=== PATIENT | female | born 1985 | race African-American/Black ===

== ENCOUNTER 2017-09-13 15:21 | Emergency (ER) | payer OTHER ==
[2017-09-13 15:46] VITALS: BP 114/74
[2017-09-13] MEDS ORDERED: IBUPROFEN 600 MG TABLET PO ONE (17:54)
--- NOTE | 2017-09-13 17:56 | ER Document Report ---
ED ENT - General Chief Complaint: Sore Throat Stated Complaint: SORE THROAT Time Seen by Provider: 09/13/17 17:39 Mode of Arrival: Ambulatory Information source: Patient TRAVEL OUTSIDE OF THE [place] IN LAST 30 DAYS: No - HPI Patient complains to provider of: Throat problem Notes: The patient is here with complaints of sore throat. She states that this is been present for the last few days. She tells me that she gets sore throat very frequently throughout the year. She has never seen an ENT for this. She denies fever. She denies cough currently. She denies nausea, vomiting, diarrhea. No difficulty breathing or swallowing. Pain is worse with swallowing. No headache, blurred vision, numbness, tingling, weakness. No abdominal pain. No other complaints at this time. - Related Data Allergies/Adverse Reactions: acetaminophen [From NyQuil] Adverse Reaction (Verified 09/13/17 15:23) dextromethorphan [From NyQuil] Adverse Reaction (Verified 09/13/17 15:23) doxylamine [From NyQuil] Adverse Reaction (Verified 09/13/17 15:23) pseudoephedrine [From NyQuil] Adverse Reaction (Verified 09/13/17 15:23) Past Medical History - Social History Smoking Status: Unknown if Ever Smoked Family History: Reviewed & Not Pertinent Patient has suicidal ideation: No Patient has homicidal ideation: No Renal/ Medical History: Denies: Hx Peritoneal Dialysis - Immunizations Immunizations up to date: Yes Hx Diphtheria, Pertussis, Tetanus Vaccination: Yes Review of Systems - Review of Systems -: Yes All other systems reviewed and negative Physical Exam - Vital signs Vitals: Temp Pulse Resp BP Pulse Ox 98.8 F 86 18 114/74 100 09/13/17 15:44 09/13/17 15:44 09/13/17 15:44 09/13/17 15:44 09/13/17 15:44 - Notes Notes: GENERAL: alert, cooperative, nontoxic, no distress. HEAD: normocephalic, atraumatic EYES: conjunctiva pink without discharge, no external redness or swelling. EARS: no external swelling, no external redness, no mastoid redness, swelling, tenderness. Ear canals are clear without swelling or drainage. TMs pearly verma , no redness, no bulging, normal landmarks, no perforation. NOSE: atraumatic, no external swelling. clear rhinorrhea noted. MOUTH/THROAT: mucous membranes moist and pink, posterior pharynx with erythema and mild swelling to the bilateral tonsils. Uvula is midline. No peritonsillar abscess. Voice is normal. No trismus or drooling. NECK: soft, supple, full range of motion, no meningismus. No anterior cervical lymphadenopathy. CHEST: no distress, lungs clear and equal throughout. No wheezing, rales, rhonchi. CARDIAC: regular rate and rhythm, no murmur, normal capillary refill, normal pulses. No peripheral edema noted. BACK: full range of motion, no CVA tenderness. EXTREMITIES: full range of motion of all extremities. No redness, no swelling. NEURO: alert and oriented A&O3, no focal deficits, full range of motion of all extremities. PYSCH: appropriate mood, affect. Patient is cooperative. SKIN: pink, warm, dry, no rash. Course - Re-evaluation Re-evalutation: 09/13/17 19:13 The patient is nontoxic appearing with stable vitals. The patient has had a sore throat for last several days. Throat exam shows red swollen tonsils with no exudate. Uvula is midline with no signs of peritonsillar abscess. She has no trismus or drooling. She is in no distress. Patient will be given a dose of Decadron as well as Bicillin in the emergency department and will be discharged home with instructions to take Tylenol and Motrin as needed for pain. Drink plenty of fluids. Change her toothbrush in 48 hours. Follow-up if not better in 1 week, sooner for worsening pain, high fever, difficulty breathing or swallowing, or for any further concerns. The patient's emergency department workup and current diagnosis were explained to the patient and or family. Follow-up instructions were provided. Medications if prescribed were discussed. Instructions for when to return to the emergency department including specific worrisome symptoms were discussed with the patient and/or family. - Vital Signs Vital signs: Temp Pulse Resp BP Pulse Ox 98.8 F 86 18 114/74 100 09/13/17 15:44 09/13/17 15:44 09/13/17 15:44 09/13/17 15:44 09/13/17 15:44 Discharge - Discharge Clinical Impression: Strep pharyngitis Condition: Stable Disposition: HOME, SELF-CARE Instructions: Strep Throat ([facility]), Penicillin V K ([facility]) Additional Instructions: Tylenol or Motrin as needed for pain. Drink plenty of fluids. Change her toothbrush in 48 hours. Follow-up if not better in the next 3-5 days, sooner for increasing pain, high fever, persistent vomiting, difficulty breathing or swallowing, or for any further concerns. Forms: Smoking Cessation Education, Return to Work Referrals: YOBANI OLIVA MD [ACTIVE STAFF] - Follow up as needed RITA MAZARIEGOS MD [ONION FARMER] - Follow up as needed CAROL MEDEROS MD [ONION FARMER] - Follow up as needed YARELIS SANTOS MD [NO LOCAL MD] - Follow up as needed
[2017-09-13] MEDS ORDERED: DEXAMETHASONE SOD PHOS INJ 10 MG/1 ML VIAL IM ONE (19:13)
[2017-09-13] MEDS ORDERED: PENICILLIN G BENZATHINE 1.2 MILLION UNIT/2 ML DISP.SYRIN IM ONE (19:13)
== END 2017-09-13 19:54 | disposition home or self-care (01) ==
LOC: ER 15:21
DX: J02.0 Streptococcal pharyngitis (principal)
CPT/HCPCS: 99283; 96372; 87880; J0561; J1100

== ENCOUNTER 2019-03-11 12:35 | Outpatient (CLI) | payer MEDICAID, OTHER ==
[2019-03-11 13:29] LABS: BACTERIA (WET MOUNT) 4+ BACTERIA SEEN; EPITHELIALS (WET MOUNT) 4+ EPITHELIALS SEEN; RBCS (WET MOUNT) RARE RBCS SEEN; T.VAGINALIS (WET MOUNT) NO TRICHOMONAS SEEN; WBCS (WET MOUNT) 3+ WBCS SEEN; YEAST (WET MOUNT) NO YEAST SEEN
[2019-03-11 13:38] LABS: APPEARANCE,URINE SLIGHTLY-CLOUDY; BILIRUBIN,URINE NEGATIVE (NEGATIVE); COLOR,URINE YELLOW; GLUCOSE, URINE 50 mg/dL (NEGATIVE); KETONES,URINE TRACE mg/dL (NEGATIVE); LEUKOCYTE ESTERASE,URINE MODERATE (NEGATIVE); NITRITE,URINE NEGATIVE (NEGATIVE); PROTEIN,URINE 30 mg/dL (NEGATIVE); URINE SPECIFIC GRAVITY 1.026
[2019-03-11 13:42] LABS: URINE AMPHETAMINES SCREEN NEGATIVE; URINE BARBITURATES SCREEN NEGATIVE; URINE BENZODIAZEPINES SCREEN NEGATIVE; URINE COCAINE SCREEN NEGATIVE; URINE MARIJUANA (THC) SCREEN NEGATIVE; URINE METHADONE SCREEN NEGATIVE; URINE PHENCYCLIDINE SCREEN NEGATIVE
[2019-03-11 14:51] LABS: CHLAM PCR NOT DETECTED (NOT DETECT)
[2019-03-11] MEDS ORDERED: METRONIDAZOLE 500 MG TABLET ONE (15:06)
[2019-03-11] MEDS ORDERED: METRONIDAZOLE 500 MG TABLET PO ONE (15:07)
--- NOTE | 2019-03-11 19:19 | RADIOLOGY REPORT (SQ) ---
EXAM DESCRIPTION: U/S OB LIMITED COMPLETED DATE/TIME: 03/11/2019 4:39 pm REASON FOR STUDY: CL for ctx . The patient is 22 weeks 3 days . COMPARISON: None. TECHNIQUE: Limited transabdominal grayscale ultrasound for evaluation of specific requested obstetri sushil parameters. LIMITATIONS: None. FINDINGS: CERVICAL LENGTH: 3.6 cm. Closed. LVP: 5.5 cm. PRESENTATION: Breech. PLACENTA: Anterior HEART RATE: 140 beats per minute. ANATOMY: Not assessed IMPRESSION: LIMITED OBSTETRICAL ULTRASOUND WITH MEASURED PARAMETERS DELINEATED ABOVE. Trimester of : Second trimester - 13 weeks 1 day to 27 weeks 6 days. TECHNICAL DOCUMENTATION: JOB ID: [id number] 2010 [employer]- All Rights Reserved Reading location - IP/workstation name: [email or web address]
== END 2019-03-11 16:51 | disposition home or self-care (01) ==
LOC: LC 12:35
PROVIDERS: ATTEND Obstetrics & Gynecology
DX: O23.592 Infection of other part of genital tract in pregnancy, second trimester (principal); B96.89 Other specified bacterial agents as the cause of diseases classified elsewhere; O99.282 Endocrine, nutritional and metabolic diseases complicating pregnancy, second trimester; E86.0 Dehydration; O47.02 False labor before 37 completed weeks of gestation, second trimester; Z3A.22 22 weeks gestation of pregnancy
CPT/HCPCS: 59899; 87086; 87210; 87088; 81001; 80307; 87491; 87591; 76815; J3490

== ENCOUNTER 2019-04-21 22:36 | Emergency (ER) | payer MEDICAID ==
[2019-04-21 22:47] VITALS: BP 142/70
== END 2019-04-21 22:56 | disposition left against medical advice (07) ==
LOC: ER 22:36
DX: Z53.21 Procedure and treatment not carried out due to patient leaving prior to being seen by health care provider (principal)

== ENCOUNTER 2019-06-02 09:03 | Outpatient (CLI) | payer MEDICAID ==
--- NOTE | 2019-06-02 10:03 | Non Stress Test Report ---
Non Stress Test Datetime Report Generated by CPN: 06/02/2019 10:03 DEMOGRAPHIC EGA NST: 34.2 INDICATION Indication for Study (NST) Other: gestational diabetes diet controlled URINE RESULTS Urine Glucose - NST: Negative MONITORING Monitor Explained: Monitor Explained; Test Explained; Patient Verbalized Understanding Time on Monitor: 06/02/2019 09:15 Time off Monitor: 06/02/2019 10:00 NST Duration: 45 NST INTERVENTIONS NST Interventions: PO Hydration; Reposition Patient BABY A: [id number] BABY A Movement : Present Contraction Frequency : occ amina vidal FHR Baseline : 140 Accelerations : 15X15 Decelerations : None Variability : Moderate 6-25bpm NST Review: Meets Criteria for Reactive NST NST Review and Verified By : anamika NST Review and Verified By : MAXIMUS Galindo NST Results: Reactive NST REPORT Report Trigger: Send Report
== END 2019-06-02 10:10 | disposition home or self-care (01) ==
LOC: LC 09:03
PROVIDERS: ATTEND Obstetrics & Gynecology
PROC: 4A1HXCZ Monitoring of Products of Conception, Cardiac Rate, External Approach (ICD-10-PCS; principal; 2019-06-02)
DX: O24.419 Gestational diabetes mellitus in pregnancy, unspecified control (principal); Z3A.34 34 weeks gestation of pregnancy
CPT/HCPCS: 59025

== ENCOUNTER 2019-06-09 16:12 | Outpatient (CLI) | payer MEDICAID ==
[2019-06-09 16:53] LABS: APPEARANCE,URINE SLIGHTLY-CLOUDY; BILIRUBIN,URINE NEGATIVE (NEGATIVE); COLOR,URINE YELLOW; GLUCOSE, URINE NEGATIVE (NEGATIVE); KETONES,URINE 80 mg/dL (NEGATIVE); LEUKOCYTE ESTERASE,URINE MODERATE (NEGATIVE); NITRITE,URINE NEGATIVE (NEGATIVE); PROTEIN,URINE 100 mg/dL (NEGATIVE); URINE SPECIFIC GRAVITY 1.026
[2019-06-09] MEDS ORDERED: RINGERS SOLUTION,LACTATED 1,000 ML IV PRN (17:03)
[2019-06-09] MEDS ORDERED: PROMETHAZINE HCL INJ 25 MG/1 ML VIAL IV ONE (17:05)
[2019-06-09] MEDS ORDERED: PROMETHAZINE HCL INJ 25 MG/1 ML VIAL ONE (17:08)
[2019-06-09 17:09] LABS: URINE AMPHETAMINES SCREEN NEGATIVE; URINE BARBITURATES SCREEN NEGATIVE; URINE BENZODIAZEPINES SCREEN NEGATIVE; URINE COCAINE SCREEN NEGATIVE; URINE MARIJUANA (THC) SCREEN NEGATIVE; URINE METHADONE SCREEN NEGATIVE; URINE PHENCYCLIDINE SCREEN NEGATIVE
[2019-06-09 17:52] LABS: ABSOLUTE BASOPHILS # (AUTO) 0.1 10^3/uL (0.0-0.2); ABSOLUTE EOSINOPHILS # (AUTO) 0.1 10^3/uL (0.0-0.6); ABSOLUTE LYMPHOCYTES (AUTO) 0.8 10^3/uL (0.5-4.7); ABSOLUTE MONOCYTES (AUTO) 0.7 10^3/uL (0.1-1.4); ABSOLUTE NEUT (AUTO) 9.1 10^3/uL (1.7-8.2); BASOPHILS % (AUTO) 0.6 % (0-2); EOSINOPHILS % (AUTO) 0.6 % (0-6); HEMOGLOBIN 11.6 g/dL (12.0-15.5); LYMPHOCYTES % (AUTO) 7.1 % (13-45); MEAN CORPUSCULAR HEMOGLOBIN 29.6 pg (27.0-33.4); MEAN CORPUSCULAR HGB CONC 34.3 g/dL (32.0-36.0); MEAN CORPUSCULAR VOLUME 86 fl (80-97); MONOCYTES % (AUTO) 6.9 % (3-13); PLATELET COUNT 253 10^3/uL (150-450); RED BLOOD COUNT 3.94 10^6/uL (3.72-5.28); RED CELL DISTRIBUTION WIDTH 14.4 % (11.5-14.0); SEGMENTED NEUTROPHILS % (AUTO) 84.8 % (42-78); TOTAL CELLS COUNTED % (AUTO) 100 %; WHITE BLOOD COUNT 10.8 10^3/uL (4.0-10.5)
--- NOTE | 2019-06-09 18:51 | Non Stress Test Report ---
Non Stress Test Datetime Report Generated by CPN: 06/09/2019 18:50 DEMOGRAPHIC EGA NST: 35.2 INDICATION Indication for Study (NST) Other: false labor MONITORING Monitor Explained: Monitor Explained; Test Explained; Patient Verbalized Understanding Time on Monitor: 06/09/2019 16:29 Time off Monitor: 06/09/2019 18:47 NST Duration: 138 NST INTERVENTIONS NST Interventions: IV Fluids; Reposition Patient BABY A: [id number] BABY A Movement : Present Contraction Frequency : irregular FHR Baseline : 145 Accelerations : 15X15 Decelerations : None Variability : Moderate 6-25bpm NST Review: Meets Criteria for Reactive NST NST Results: Reactive NST REPORT Report Trigger: Send Report
== END 2019-06-09 18:47 | disposition home or self-care (01) ==
LOC: LC 16:12
PROVIDERS: ATTEND Obstetrics & Gynecology Gynecology
PROC: 4A1HXCZ Monitoring of Products of Conception, Cardiac Rate, External Approach (ICD-10-PCS; principal; 2019-06-09)
DX: O47.03 False labor before 37 completed weeks of gestation, third trimester (principal); Z3A.35 35 weeks gestation of pregnancy
CPT/HCPCS: 59025; 36415; 85025; 81001; 80307; J2550

== ENCOUNTER 2019-06-28 03:15 | Inpatient (IN) | payer MEDICAID ==
[2019-06-28 03:49] LABS: APPEARANCE,URINE SLIGHTLY-CLOUDY; BILIRUBIN,URINE NEGATIVE (NEGATIVE); COLOR,URINE STRAW; GLUCOSE, URINE NEGATIVE (NEGATIVE); KETONES,URINE NEGATIVE (NEGATIVE); LEUKOCYTE ESTERASE,URINE LARGE (NEGATIVE); NITRITE,URINE NEGATIVE (NEGATIVE); PROTEIN,URINE 30 mg/dL (NEGATIVE); UROBILINOGEN,URINE NEGATIVE mg/dL (<2.0)
[2019-06-28 04:06] LABS: URINE AMPHETAMINES SCREEN NEGATIVE; URINE BARBITURATES SCREEN NEGATIVE; URINE BENZODIAZEPINES SCREEN NEGATIVE; URINE COCAINE SCREEN NEGATIVE; URINE MARIJUANA (THC) SCREEN NEGATIVE; URINE METHADONE SCREEN NEGATIVE; URINE PHENCYCLIDINE SCREEN NEGATIVE
[2019-06-28] MEDS ORDERED: OXYTOCIN 10 UNIT/ML VIAL ONE (04:24)
[2019-06-28] MEDS ORDERED: LIDOCAINE 1% INJ-PF (10 MG/ML) 30 ML SDV ONE (04:24)
[2019-06-28] MEDS ORDERED: MISOPROSTOL 0.2 MG TABLET ONE (04:24)
[2019-06-28] MEDS ORDERED: OXYTOCIN/NORMAL SALINE 20 UNIT/1,000 ML RTUINJ ONE (04:24)
--- NOTE | 2019-06-28 04:55 | Admission Physical ---
Datetime Report Generated by CPN: 06/28/2019 04:55 CURRENT ADMISSION Chief Complaint: Uterine Contractions Indication for Induction: Not Applicable Admit Impression : Term, Intrauterine ; Active Labor Admit Plan: Admit to Unit; Initiate Labor Protocol ALLERGIES Medication Allergies: No Medication Allergies: No Known Allergies (06/28/2019) Latex: No Latex Allergies OBSTETRICAL HISTORY EDC: 07/12/2019 00:00 : 4 Para: 2 Gestational Diabetes: Yes Rh Sensitization: No Incompetent Cervix: No SHIELA: No Infertility: No ART Treatment: No Uterine Anomaly: No IUGR: No Hx Previous C/S: No Macrosomia: No Hx Loss/Stillborn: No PIH: No Hx : No Placenta Previa/Abruption: No Depression/PP Depression: No PTL/PROM: No Post Hemorrhage: No SEE RECORDS Alcohol: No Marijuana : No Cocaine: No Other Illicit Drugs: No Cigarettes: Never Smoker. [id number] MEDICAL HISTORY Diabetes: Yes Diabetes Type: Gestational Diabetes Blood Transfusion: No Pulmonary Disease (Asthma, TB): No Breast Disease: No Hypertension: No Saw Maker Surgery: No Heart Disease: No Hosp/Surgery: No Autoimmune Disorder: No Anesthetic Complications: No Kidney Disease: No Abnormal Pap Smear: No Neuro/Epilepsy: No Psychiatric Disorders: No Other Medical Diseases: No Hepatitis/Liver Disease: No Significant Family History: No Varicosities/Phlebitis: No Trauma/Violence : No Thyroid Dysfunction: No INFECTIOUS HISTORY Gonorrhea: No Genital Herpes: No Chlamydia: No Tuberculosis: No Syphilis: No Hepatitis: No HIV/AIDS Exposure: No Rash or Viral Illness: No HPV: No PHYSICAL EXAM General: Normal HEENT: Normal Neurologic: Normal Thyroid: Normal Heart: Normal Lungs: Normal Breast: Deferred Back: Normal Abdomen: Normal Genitourinary Exam: Normal Extremities: Normal DTRs: Normal Pelvic Type: Adequate Vital Signs: Reviewed FETUS A EGA: 38.0 Monitoring: External US Presentation: Vertex PLANS FOR LABOR AND DELIVERY Labor and Delivery: None Pain Management: Natural Feeding Preference: Breast Benefit of Breast Feed Discussed: Yes Circumcision: Yes INFORMED CONSENT Signature: with User ID: [email or web address]
[2019-06-28] MEDS ORDERED: BENZOCAINE/MENTHOL AEROSOL SPRAY 56 ML TOP PRN (04:59)
[2019-06-28] MEDS ORDERED: PROMETHAZINE HCL 25 MG SUPP.RECT PR PRN (04:59)
[2019-06-28] MEDS ORDERED: PROMETHAZINE HCL 25 MG TABLET PO PRN (04:59)
[2019-06-28] MEDS ORDERED: DIPHENHYDRAMINE HCL 25 MG CAPSULE PO PRN (04:59)
[2019-06-28] MEDS ORDERED: MAGNESIUM HYDROXIDE SUSP 30 ML UDCUP PO PRN (04:59)
[2019-06-28] MEDS ORDERED: MEASLES,MUMPS&RUBELLA VACC/PF 0.5 ML VIAL SUBCUT PRN (04:59)
[2019-06-28] MEDS ORDERED: PROMETHAZINE HCL INJ 25 MG/1 ML VIAL IV PRN (04:59)
[2019-06-28] MEDS ORDERED: ZOLPIDEM TARTRATE 5 MG TABLET PO PRN (04:59)
[2019-06-28] MEDS ORDERED: DIBUCAINE 1% OINTMENT 28 GM TP PRN (04:59)
[2019-06-28] MEDS ORDERED: DIPH/PERTUSS(ACELL)/TETANUS VAC/PF 0.5 ML SYR (>=10YO) IM PRN (04:59)
[2019-06-28] MEDS ORDERED: ACETAMINOPHEN 650 MG SUPP.RECT PR PRN (04:59)
[2019-06-28] MEDS ORDERED: GLYCERIN/WITCH HAZEL LEAF 1 EACH MED..WIPE TP PRN (04:59)
[2019-06-28] MEDS ORDERED: NA PHOS,M-B/NA PHOS,DI-BA (ADULT) 133 ML ENEMA PR PRN (04:59)
[2019-06-28] MEDS ORDERED: OXYTOCIN/NORMAL SALINE 20 UNIT/1,000 ML RTUINJ IV PRN (04:59)
[2019-06-28] MEDS ORDERED: PSEUDOEPHEDRINE HCL 30 MG TABLET PO PRN (04:59)
[2019-06-28] MEDS ORDERED: ACETAMINOPHEN WITH CODEINE #3 TABLET PO PRN (04:59)
--- NOTE | 2019-06-28 05:55 | Delivery Summary ---
Del Sum A-C Datetime Report Generated by CPN: 06/28/2019 05:55 DELIVERY PERSONNEL DELIVERY PERSONNEL: [id number] Delivery Doctor:: Betsy Chen MD Labor and Delivery Nurse:: Leyla Iqbal RN Labor and Delivery Nurse:: Gena Mcmahon RN Nursery Nurse:: Katya Marshall RN Special Needs Nanny/TYPE PROOF REPRODUCER: Edith Ross, ST MATERNAL INFORMATION Delivery Anesthesia: None Medications After Delivery: Pitocin Drip 20 Units/1000ml NSS Meds After Delivery Comment: 20 units pitocin after placenta delivery Estimated Blood Loss (ml): 75 Delivery QBL: 75 Maternal Complications: Precipitous Labor (<3hrs) LABOR SUMMARY EDC: 07/12/2019 00:00 No. Babies in Womb: 1 Attempted: Yes Labor Anesthesia: None LABOR INFORMATION Reason for Induction: Not Applicable Onset of Labor: 06/28/2019 03:19 Complete Dilatation: 06/28/2019 04:17 Oxytocin: N/A Group B Beta Strep: positive Antibiotics # of Doses: 0 Steroids Given: None Reason Steroids Not Administered: Not Applicable MEMBRANES Membranes Rupture Method: Spontaneous Rupture of Membranes: 06/28/2019 04:33 Length of Rupture (hr): 0.05 Amniotic Fluid Color: Clear Amniotic Fluid Amount: Small STAGES OF LABOR Stage 1 hr: 0 Stage 1 min: 58 Stage 2 hr: 0 Stage 2 min: 19 Stage 3 hr: 0 Stage 3 min: 12 Total Time in Labor hr: 1 Total Time in Labor min: 29 VAGINAL DELIVERY Episiotomy: None Laceration #1: None Laceration Extension #1: N/A Laceration #2: None Laceration Extension #2: N/A Laceration #3: None Laceration Extension #3: N/A Laceration Repair: Not Applicable Sponge Count Correct: Vaginal Sweep Performed Sharps Count Correct: Yes CSECTION DELIVERY Primary Indication: N/A Secondary Indication: N/A CSection Urgency: N/A CSection Incidence: N/A Labor: N/A Elective: N/A CSection Incision: N/A BABY A INFORMATION Delivery Date/Time: 06/28/2019 04:36 Method of Delivery: Vaginal Born in Route : No : N/A Forceps: N/A Vacuum Extraction: N/A Shoulder Dystocia : No PRESENTATION/POSITION BABY A Presentation: Cephalic Cephalic Presentation: Vertex Vertex Position: Left Mentum Anterior Breech Presentation: N/A PLACENTA INFORMATION BABY A Placenta Delivery Time : 06/28/2019 04:48 Placenta Method of Delivery: Spontaneous Placenta Status: Delivered SCORES BABY A Heart Rate 1 min: >100 bpm Resp Effort 1 min: Good Cry Reflex Irritability 1 min: Cough or Sneeze or Pulls Away Muscle Tone 1 min: Active Motion Color 1 min: Blue/Pale Resuscitation Effort 1 min: Tactile Stimulation SCORE 1 MIN: 8 Heart Rate 5 min: >100 bpm Resp Effort 5 min: Good Cry Reflex Irritability 5 min: Cough or Sneeze or Pulls Away Muscle Tone 5 min: Active Motion Color 5 min: Body [place], Extremities Blue Resuscitation Effort 5 min: N/A SCORE 5 MIN: 9 INFORMATION BABY A Gestational Age at Delivery: 38.0 Gestational Status: Early Term- 37- 38.6 Weeks Outcome : Liveborn Infant Condition : Stable Sex: Male IDENTIFICATION BABY A Infant Verification Date/Time: 06/28/2019 04:36 ID Band Number: [id number] Mother's Name Verified: Yes RN Verifying : Dwain Mcmahon, RN Additional Verifying Personnel: AWilson Iqbal, RN WEIGHT/LENGTH BABY A Infant Birthweight (gm): 2860 Infant Weight (lb): 6 Weight (oz): 5 Length (in): 19.00 Infant Length (cm): 48.26 CORD INFORMATION BABY A No. Cord Vessels: 3 Nuchal Cord : N/A Cord Blood Taken: Yes-For Storage (Mom's Blood type +) Suction: None ASSESSMENT BABY A Complications: None Physical Findings at Delivery: Within Normal Limits Skin to Skin: Yes Skin to Skin Time (min): 54 Transferred To: Remains with Mother BABY B INFORMATION : N/A SIGNATURES Signature: with User ID: [email or web address]
[2019-06-28] MEDS ORDERED: IBUPROFEN 800 MG TABLET ONE (06:18)
[2019-06-28] MEDS: IBUPROFEN 800 MG TABLET PO SCH ×3 (06:20→21:53)
[2019-06-28 08:09] LABS: ABSOLUTE BASOPHILS # (AUTO) 0.1 10^3/uL (0.0-0.2); ABSOLUTE LYMPHOCYTES (AUTO) 1.3 10^3/uL (0.5-4.7); ABSOLUTE MONOCYTES (AUTO) 0.7 10^3/uL (0.1-1.4); ABSOLUTE NEUT (AUTO) 10.2 10^3/uL (1.7-8.2); BASOPHILS % (AUTO) 0.8 % (0-2); EOSINOPHILS % (AUTO) 0.3 % (0-6); HEMATOCRIT 33.9 % (36.0-47.0); HEMOGLOBIN 11.2 g/dL (12.0-15.5); LYMPHOCYTES % (AUTO) 10.8 % (13-45); MEAN CORPUSCULAR HEMOGLOBIN 28.6 pg (27.0-33.4); MEAN CORPUSCULAR HGB CONC 33.1 g/dL (32.0-36.0); MEAN CORPUSCULAR VOLUME 86 fl (80-97); MONOCYTES % (AUTO) 5.6 % (3-13); PLATELET COUNT 195 10^3/uL (150-450); RED BLOOD COUNT 3.92 10^6/uL (3.72-5.28); RED CELL DISTRIBUTION WIDTH 15.2 % (11.5-14.0); SEGMENTED NEUTROPHILS % (AUTO) 82.5 % (42-78); TOTAL CELLS COUNTED % (AUTO) 100 %; WHITE BLOOD COUNT 12.4 10^3/uL (4.0-10.5)
[2019-06-28] MEDS ORDERED: FAMOTIDINE 20 MG TABLET PO SCH (10:00)
[2019-06-28] MEDS: DOCUSATE SODIUM 100 MG CAPSULE PO SCH ×2 (10:47→18:00)
[2019-06-28] MEDS: SENNOSIDES/DOCUSATE 8.6-50 MG 1 EACH TABLET PO SCH (10:47)
[2019-06-28] MEDS: PRENATAL VITAMIN W DHA CAPSULE PO SCH (10:47)
[2019-06-28] MEDS: FERROUS SULFATE 325 MG TABLET PO SCH ×2 (10:47→18:00)
[2019-06-28] MEDS ORDERED: ONDANSETRON HCL INJ/PF 4 MG/2 ML SDV IV PRN (20:51)
[2019-06-28] MEDS: FAMOTIDINE INJ/PF 20 MG/2 ML SDV IV SCH (21:53)
[2019-06-29] MEDS: IBUPROFEN 800 MG TABLET PO SCH ×3 (05:19→22:04)
[2019-06-29 06:54] LABS: HEMATOCRIT 30.7 % (36.0-47.0); HEMOGLOBIN 10.5 g/dL (12.0-15.5); MEAN CORPUSCULAR HEMOGLOBIN 29.3 pg (27.0-33.4); MEAN CORPUSCULAR HGB CONC 34.2 g/dL (32.0-36.0); MEAN CORPUSCULAR VOLUME 86 fl (80-97); PLATELET COUNT 215 10^3/uL (150-450); RED BLOOD COUNT 3.58 10^6/uL (3.72-5.28); RED CELL DISTRIBUTION WIDTH 15.2 % (11.5-14.0); WHITE BLOOD COUNT 10.6 10^3/uL (4.0-10.5)
[2019-06-29] MEDS: ACETAMINOPHEN WITH CODEINE #3 TABLET PO PRN ×2 (07:48→20:31)
[2019-06-29] MEDS: FERROUS SULFATE 325 MG TABLET PO SCH ×2 (10:11→17:32)
[2019-06-29] MEDS: DOCUSATE SODIUM 100 MG CAPSULE PO SCH ×2 (10:11→17:32)
[2019-06-29] MEDS: PRENATAL VITAMIN W DHA CAPSULE PO SCH (10:11)
[2019-06-29] MEDS: SENNOSIDES/DOCUSATE 8.6-50 MG 1 EACH TABLET PO SCH (10:11)
[2019-06-29] MEDS: FAMOTIDINE INJ/PF 20 MG/2 ML SDV IV SCH (10:11)
--- NOTE | 2019-06-29 13:58 | PDOC PROGRESS REPORT ---
Subjective-OB Progress Note for:: 06/29/19 Subjective: reports bleeding slowing, pain controlled with current meds. denies needs Physical Exam (OB) Vital Signs: Temp Pulse Resp BP Pulse Ox 98.5 F 89 16 130/55 H 100 06/29/19 07:25 06/29/19 07:25 06/29/19 07:25 06/29/19 07:25 06/29/19 07:25 Intake & Output 06/28/19 06/29/19 06/30/19 06:59 06:59 06:59 Intake Total 400 Output Total 450 Balance -50 Weight 75.4 kg - Abdomen Description: Soft, Round Hernia Present: No Fundal Description: Firm, Midline Fundal Height: u/u - u/2 - Abdominal Distension: No distension Tenderness: Nontender - Extremities Lower extremities: Edgar's sign - neg Calf: Normal, Nontender Objective-Diagnostic Laboratory: 06/29/19 06:33 06/29/19 06:33 WBC 10.6 H RBC 3.58 L Hgb 10.5 L Hct 30.7 L MCV 86 MCH 29.3 MCHC 34.2 RDW 15.2 H Plt Count 215 Assessment and Plan(PN) - Assessment and Plan (1) Labor, precipitous, delivered Is this a current diagnosis for this admission?: Yes - Time Spent with Patient Time with patient: Less than 15 minutes Medications reviewed and adjusted accordingly: Yes - Disposition Anticipated Discharge: Home Within: within 24 hours
[2019-06-30] MEDS: IBUPROFEN 800 MG TABLET PO SCH (05:48)
[2019-06-30] MEDS: DOCUSATE SODIUM 100 MG CAPSULE PO SCH (09:56)
[2019-06-30] MEDS: SENNOSIDES/DOCUSATE 8.6-50 MG 1 EACH TABLET PO SCH (09:56)
[2019-06-30] MEDS: FERROUS SULFATE 325 MG TABLET PO SCH (09:56)
[2019-06-30] MEDS: PRENATAL VITAMIN W DHA CAPSULE PO SCH (09:57)
--- NOTE | 2019-06-30 10:54 | PDOC DISCHARGE SUMMARY ---
Impression - Admit/DC Date/PCP Admission Date/Primary Care Provider: 06/28/19 04:23 TEE AKHTAR MD Discharge Date: 06/30/19 - Discharge Diagnosis (1) Labor, precipitous, delivered Is this a current diagnosis for this admission?: Yes (2) Vaginal delivery Is this a current diagnosis for this admission?: Yes - Additional Information Resuscitation Status: Full Code Discharge Diet: Regular Discharge Activity: Balance Activity w/Rest, Pelvic Rest Referrals: ELENA DING MD [ACTIVE STAFF] - (Follow up in 4 weeks for your post evaluation. Call the office and make an appt. ) Prescriptions: Ibuprofen [Motrin 800 mg Tablet] 800 mg PO Q8HP PRN #60 tablet PRN Reason: Home Medications: No122/Iron/Folic Acid [ Multi Tablet] 1 tab PO DAILY 06/29/19 Ibuprofen [Motrin 800 mg Tablet] 800 mg PO Q8HP PRN #60 tablet 06/30/19 Results Laboratory Results: WBC 10.6 10^3/uL (4.0-10.5) H 06/29/19 06:33 RBC 3.58 10^6/uL (3.72-5.28) L 06/29/19 06:33 Hgb 10.5 g/dL (12.0-15.5) L 06/29/19 06:33 Hct 30.7 % (36.0-47.0) L 06/29/19 06:33 MCV 86 fl (80-97) 06/29/19 06:33 MCH 29.3 pg (27.0-33.4) 06/29/19 06:33 MCHC 34.2 g/dL (32.0-36.0) 06/29/19 06:33 RDW 15.2 % (11.5-14.0) H 06/29/19 06:33 Plt Count 215 10^3/uL (150-450) 06/29/19 06:33 Lymph % (Auto) 10.8 % (13-45) L 06/28/19 07:47 Casey % (Auto) 5.6 % (3-13) 06/28/19 07:47 Eos % (Auto) 0.3 % (0-6) 06/28/19 07:47 Baso % (Auto) 0.8 % (0-2) 06/28/19 07:47 Absolute Neuts (auto) 10.2 10^3/uL (1.7-8.2) H 06/28/19 07:47 Absolute Lymphs (auto) 1.3 10^3/uL (0.5-4.7) 06/28/19 07:47 Absolute Monos (auto) 0.7 10^3/uL (0.1-1.4) 06/28/19 07:47 Absolute Eos (auto) 0.0 10^3/uL (0.0-0.6) 06/28/19 07:47 Absolute Basos (auto) 0.1 10^3/uL (0.0-0.2) 06/28/19 07:47 Seg Neutrophils % 82.5 % (42-78) H 06/28/19 07:47 Urine Color STRAW 06/28/19 03:30 Urine Appearance SLIGHTLY-CLOUDY 06/28/19 03:30 Urine pH 6.0 (5.0-9.0) 06/28/19 03:30 Ur Specific [place] 1.010 06/28/19 03:30 Urine Protein 30 mg/dL (NEGATIVE) H 06/28/19 03:30 Urine Glucose (UA) NEGATIVE mg/dL (NEGATIVE) 06/28/19 03:30 Urine Ketones NEGATIVE mg/dL (NEGATIVE) 06/28/19 03:30 Urine Blood SMALL (NEGATIVE) H 06/28/19 03:30 Urine Nitrite NEGATIVE (NEGATIVE) 06/28/19 03:30 Urine Bilirubin NEGATIVE (NEGATIVE) 06/28/19 03:30 Urine Urobilinogen NEGATIVE mg/dL (<2.0) 06/28/19 03:30 Ur Leukocyte Esterase LARGE (NEGATIVE) H 06/28/19 03:30 Urine Ascorbic Acid NEGATIVE (NEGATIVE) 06/28/19 03:30 Urine Opiates Screen NEGATIVE 06/28/19 03:30 Urine Methadone Screen NEGATIVE 06/28/19 03:30 Ur Barbiturates Screen NEGATIVE 06/28/19 03:30 Ur Phencyclidine Scrn NEGATIVE 06/28/19 03:30 Ur Amphetamines Screen NEGATIVE 06/28/19 03:30 U Benzodiazepines Scrn NEGATIVE 06/28/19 03:30 Urine Cocaine Screen NEGATIVE 06/28/19 03:30 U Marijuana (THC) Screen NEGATIVE 06/28/19 03:30 RPR NONREACTIVE (NONREACTIVE) 06/28/19 07:47 Blood Type B POSITIVE 06/28/19 07:47 Antibody Screen NEGATIVE 06/28/19 07:47
[2019-06-30 11:02] VITALS: BP 141/68
[2019-06-30] MEDS ORDERED: NYSTATIN CREAM 15 GM TP SCH (13:00)
== END 2019-06-30 12:00 | disposition home or self-care (01) | DRG 807 ==
LOC: LC 03:15 → LR 04:23 → 2S 06:59
PROVIDERS: ADMIT Obstetrics & Gynecology; ATTEND Obstetrics & Gynecology
PROC: 10E0XZZ Delivery of Products of Conception, External Approach (ICD-10-PCS; principal; 2019-06-28)
DX: O99.824 Streptococcus B carrier state complicating childbirth (principal); Z37.0 Single live birth; O62.3 Precipitate labor; Z3A.38 38 weeks gestation of pregnancy
CPT/HCPCS: 36415; 80307; 81005; 85025; 85027; 86592; 86850; 86900; 86901; J2550; J2590; J3490; S0028

== ENCOUNTER 2019-08-29 10:30 | Emergency (ER) | payer MEDICAID ==
[2019-08-29] MEDS ORDERED: LIDOCAINE 1% INJ-PF (10 MG/ML) 30 ML SDV INJ ONE (11:21)
--- NOTE | 2019-08-29 11:22 | ER Document Report ---
HPI - HPI Time Seen by Provider: 08/29/19 11:17 Pain Level: 2 Context: Patient is a 33-year-old female presents emergency department with a chief complaint of a laceration to her right hand. Patient is right-handed. She ended up cutting her hand on a piece of glass from a cup. Patient was angry and she slammed her hand on the table in a glass broke and ended up cutting her hand. She denies any intentional cutting. She states that she is up-to-date on her tetanus vaccine. Denies any past medical history. Does not take any medications. Patient denies suicidal or homicidal ideation. She does admit to depression. - ROS Systems Reviewed and Negative: Yes All other systems reviewed and negative - NEURO Neurology: DENIES: Weakness - MUSCULOSKELETAL Musculoskeletal: REPORTS: Extremity pain - rigth medial hand - DERM Skin Color: Normal Skin Problems: None, Laceration - right medial hand Past Medical History - Social History Smoking Status: Unknown if Ever Smoked Family History: Reviewed & Not Pertinent Patient has suicidal ideation: No Patient has homicidal ideation: No Renal/ Medical History: Denies: Hx Peritoneal Dialysis - Immunizations Immunizations up to date: Yes Hx Diphtheria, Pertussis, Tetanus Vaccination: Yes Vertical Provider Document - CONSTITUTIONAL Agree With Documented VS: Yes Exam Limitations: No Limitations General Appearance: Mild Distress - tearful - INFECTION CONTROL TRAVEL OUTSIDE OF THE [place] IN LAST 30 DAYS: No - HEENT HEENT: Atraumatic, Normocephalic, PERRLA - RESPIRATORY Respiratory: No Respiratory Distress - CARDIOVASCULAR Cardiovascular: Regular Rhythm Pulses: Normal: Radial - MUSCULOSKELETAL/EXTREMETIES Musculoskeletal/Extremeties: FROM, Tender - right medial hand at laceration - NEURO Level of Consciousness: Awake, Alert, Appropriate Motor/Sensory: No Motor Deficit, No Sensory Deficit - DERM Integumentary: Warm, Dry, No Rash, Laceration - right lateral hand Course - Re-evaluation Re-evalutation: 08/29/19 12:25 Patient was very nervous during her sutures. She opened up and admitted that she feels like she is going to depression. I consulted the mental health team and patient will be seen by them. She denies any suicidal or homicidal ideation at this time. She just states that she is going through a hard time and is feeling that she has depression. 08/29/19 13:51 Mental health is recommending that the patient take trazodone, 50 mg twice daily for her aggression and depression. Patient will follow[facility]up with [facility] in regards to this visit. Follow-up precautions were given. Verbal discharge instructions were given to the patient. They verbalized understanding. They are stable for discharge. - Vital Signs Vital signs: Temp Pulse Resp BP Pulse Ox 98.4 F 77 18 136/84 H 98 08/29/19 10:49 08/29/19 10:49 08/29/19 10:49 08/29/19 10:49 08/29/19 10:49 Procedures - Laceration/Wound Repair Right Lateral Hand Wound length (cm): 2 Wound's Depth, Shape: Superficial, Linear Laceration pre-procedure: Sterile PPE donned, Shur-Clens applied Anesthetic type: 1% Lidocaine Volume Anesthetic (mLs): 6 Wound explored: Clean, No foreign body removed Irrigated w/ Saline (mLs): 50 Wound Repaired With: Sutures Suture Size/Type: 5:0, Nylon Number of Sutures: 3 Post-procedure wound care: Sterile dressing applied Post-procedure NV exam normal: Yes Complications: No Hands back picture: 1 - laceration Discharge - Discharge Clinical Impression: depression Hand laceration Qualifiers: Encounter type: initial encounter Foreign body presence: without foreign body Laterality: right Qualified Code(s): S61.411A - Laceration without foreign body of right hand, initial encounter Condition: Stable Disposition: HOME, SELF-CARE Instructions: Antibiotic Ointment Protection ([facility]), Laceration Care ([facility]), Soap Cleansing ([facility]) Additional Instructions: Please return to your primary doctor, the ED, or an urgent care in 7 days for suture removal. Return immediately if you develop spreading redness around the wound, pus from the wound, worsening pain, or a fever of >100.4. Keep the area clean and dry. Wash gently with soap and water twice daily and cover with antibiotic ointment. You are also being started on trazodone, as per mental health recommendation for depression. Please follow-up with your [employer] in regards to this visit. Prescriptions: Trazodone HCl 50 mg PO BID #28 tablet Referrals: TEE AKHTAR MD [Primary Care Provider] - Follow up in 3-5 days
[2019-08-29 14:12] VITALS: BP 111/64
--- NOTE | 2019-08-29 16:52 | PSYCHOLOGICAL NOTE ---
Psych Note - Psych Note Date seen by psych provider: 08/29/19 Time seen by psych provider: 12:50 Psych Note: Patient is a 33-year-old female who presents to ED via POV for a cut on her finger. During medical evaluation patient disclosed concerns for depression. Patient reports being "stressed out." Patient disclosed issues surrounding her natural . Patient expressed frustration with "difficulties" in her marriage. Patient stated her is not helpful with their . Patient states that she enjoys her son and enjoys taking care of him. Patient expressed feelings of being overwhelmed with being financially dependent on her , breast-feeding her and the lack of sleep that comes with breast-feeding a , and providing for her other 2 children. Patient expressed a desire to be financially independent from her . She reports that she has had thoughts of suicide over her lifetime. Patient denies she would act on those thoughts of suicide. Patient is agreeable to outpatient mental health resource to follow-up with medication management and mental health services. Patient is alert and oriented to person, place, time and circumstance. Mood is normal with congruent affect. Patient denies suicidal and homicidal ideations. Delusions are absent and behavior is congruent with an intact reality based presentation (i.e., organized and linear through processes). There is no observed behavior that suggests patient is responding to internal stimuli. Patient is able to engage in organized, rational thought processes. Patient is able to express needs and wants in a logical manner. Patient denies current auditory and visual hallucinations. Eye contact is appropriate. Conversational speech is within normal rate, tone, and prosody. Intellectual ability appears to be within average range. Attention and concentration are good. Insight, judgment and impulse control are currently poor. Medication recommendations per [facility] contracted psychiatrist Dr. Joellen MD are as follows: Add Trazadone 50MG, twice a day Impression/Plan: Patient is cleared from acute psychiatric services. Patient denies suicidal and homicidal ideations. There is no observed behavior that suggests patient is responding to internal stimuli. Patient engaged in organized, rational, linear thought processes and was able to express needs and wants in a logical manner. Patient is agreeable to outpatient mental health resource to follow-up with medication management and mental health services. Patient was provided with mental health resource list. Dr. Ordaz was consulted on the care and management of this patient; attending physician is in agreement with recommendations and disposition.
== END 2019-08-29 14:12 | disposition home or self-care (01) ==
LOC: ER 10:30
DX: O99.345 Other mental disorders complicating the puerperium (principal); F53.0 Postpartum depression; S61.411A Laceration without foreign body of right hand, initial encounter; W25.XXXA Contact with sharp glass, initial encounter
CPT/HCPCS: 99284